=== PATIENT | female | born 1985 | race Caucasian/White ===

== ENCOUNTER 2017-02-19 15:22 | Emergency (ER) | payer OTHER ==
--- NOTE | ~2017-02-19 | CR63 ---
[facility]. [facility] A Service of [facility] RADIOLOGY TEXT RESULTS PATIENT: ROLY CHANEY LOCATION: SED : 87 UNIT #: [id number] AGE: [address]: Anette Campuzano APRN SEX: F ORDER DR: [id number] [place] [id number] E MR#: [id number] Acc #: [id number] NAME: ROLY CHANEY : 1985 SEX: F STUDY DATE/TIME: 02/19/2017 15:56 UNIT: SED ROOM: STUDY DESCRIPTION: CR Chest 2 View Attending Physician: Anette Campuzano A.P.R.N. Referring Physician: Anette Campuzano A.P.R.N. Ordering Physician: Anette Campuzano A.P.R.N. Primary Care Physician: Belle Banks A.P.R.N. MEDICAL IMAGING REPORT This report is preliminary unless electronic signature is present. EXAM Two-view chest INDICATIONS Cough for the past week. PROCEDURE Frontal and lateral views of the chest. COMPARISON 11/09/2016 FINDINGS Heart size is normal. No dense consolidation. No pleural fluid. No pneumothorax. IMPRESSION No active process Dictated by... Shadi Rubio M.D. THIS IS AN ELECTRONICALLY VERIFIED REPORT Shadi Rubio M.D. at 02/21/2017 9:51 PM EERadha/darrel TD: 02/19/2017 23:02 JOB #: [id number] MEDICAL IMAGING REPORT Page 1 of 1
[~2017-02-19 15:22] MED LIST: ALLERGY RELIEF25 MG PO; AMITRYPTYLINE PO; AMOXICILLIN PO; ANEXSIA 7.5/3251 TA1 PO; ANSAID100 MG PO; BENADRYL25 M1; BENADRYL25 M1 PO; BENADRYL25 MG PO; BENZONATATE PO; CIPRO PO; CIPRO250 MG PO; CLARITIN10 MG PO; DOK100 MG PO; DURAGESIC25 MCG; ESGIC CAPSULE1 CAP PO; FAMOTIDINE IV; FAMOTIDINE PO; FAMOTIDINE20 MG PO; FENTANYL1 PATCH .7 TOP; FERROUS GLUCON324 MG PO; FIORICET 50-321 EACH PO; FLAGYL PO; FLAGYL250 M1 PO; FLEXERIL10 M1 PO; FLEXERIL10 MG PO; GABAPENTIN300 MG PO; HYDROCODON-ACE1 EA12 PO; HYDROXYZINE HCL50 MG PO; IBUPROFEN PO; IMODIUM2 MG PO; INDERAL20 MG PO; IRON TABLETS1 TAB PO; KEFLEX500 MG PO; KLONOPIN0.5 M3; KLONOPIN0.5 MG PO; LORTAB 10/500 T1 TAB PO; LORTAB 5/500 TA1 TA2 PO; MEDROL DOSEPAK4 MG DOB; NAPROXEN PO; NORCO 10-325 TA1 TAB PO; NORCO 5/325 TAB1 TAB PO; OMNICEF PO; OXYCODON-ACETA1 EAC1 PO; PERCOCET; PERCOCET 5-3251 TAB PO; PERCOCET 7.5-31 EACH PO; PERCOCET PO; PERCOCET5/325 PO; PHENERGAN PO; PHENERGAN PR; PHENERGAN25 MG PO; PREDNISONE PO; PRENATAL1 TA1 PO; PRILOSEC PO; PROZAC PO; REMERON PO; SERTRALINE HCL25 M1 PO; SERTRALINE HCL50 MG PO; SUDAFED PE SIN1 EACH PO; TIZANIDINE HCL2 M1 PO; TIZANIDINE HCL4 M1 PO; TOFRANIL25 MG PO; TOPAMAX PO; ULTRAM PO; VANCOMYCIN PO; VENLAFAXINE HC150 M1 PO; VICODIN 5/500 T1 TAB PO; VISTARIL PO; VISTARIL50 MG PO; VOLTAREN 0.1%2.5 M1 TOP; VOLTAREN75 MG PO; XANAX0.5 MG PO; ZANAFLEX2 M1 PO; ZANAFLEX2 MG PO; ZANTAC PO; ZEBUTAL PO; ZOFRAN ODT4 MG PO; ZOFRAN PO; ZOLOFT100 MG PO; [UNRECOGNIZED DRUG - OTHER]
[2017-02-19 15:50] LABS: INFLUENZA A NEG (NEG); INFLUENZA B NEG (NEG)
== END 2017-02-19 16:59 | disposition home or self-care (01) ==
LOC: SED 15:22
PROVIDERS: Nurse Practitioner
DX: J20.9 Acute bronchitis, unspecified (principal); J01.90 Acute sinusitis, unspecified; Z88.8 Allergy status to other drugs, medicaments and biological substances; Z88.5 Allergy status to narcotic agent; Z79.899 Other long term (current) drug therapy
CPT/HCPCS: 71020; 87804; 99283; J2310